=== PATIENT | male | born 2000 | race Two or more races ===

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

== ENCOUNTER 2020-09-08 01:27 | Emergency (ER) | payer MEDICAID ==
[~2020-09-08] VITALS: Ht 188 cm; Wt 68.0 kg
[~2020-09-08 01:27] MED LIST changes: +GUAIFENESI100 MG/5 M ORAL; +VENTOLIN HFA18 GM INH; +ZITHROMAX250 MG ORAL
[2020-09-08 01:40] VITALS: BP 118/72
[2020-09-08] MEDS ORDERED: Omnipaque-300 100ml vial INJ PRN (01:45)
[2020-09-08] MEDS ORDERED: Morphine Sulfate 4mg/ml Inj (IV USE ONLY) IVP ONE ×2 (01:45→02:30)
--- NOTE | 2020-09-08 01:45 | Emergency Room Report ---
History of Present Illness General Chief Complaint: Abdominal Pain Source: Patient Present Illness HPI This is a 20-year-old male with no past medical history presents with complaint of abdominal pain. Onset about 7 hours ago. He was skateboarding and when he tried to jump over a bench, the board flipped up and hit him in the abdomen. He also said he try to twist his way out of the board. Initially has some soreness but now with increasing pain. Worse with movement. Worse with palpation. Pain is 10 out of 10. No nausea no vomiting. No fever chills. No dysuria frequency. Allergies: Coded Allergies: No Known Allergies (Unverified , 08/22/12) COVID-19 Screening Contact w/high risk pt: No Recent Travel to affected area: No Experienced COVID-19 symptoms?: No COVID-19 Testing performed [employer] OFFICER: No Patient History Past Medical History: see triage record, old chart reviewed Past Surgical History: none Pertinent Family History: none Social History: Denies: smoking Immunizations: UTD Reviewed Nursing Documentation: PMH: Agreed; PSxH: Agreed Nursing Documentation-PMH Past Medical History: No Stated History Review of Systems Eye: Denies: eye pain, blurred vision ENT: Denies: ear pain, nose congestion, throat swelling Respiratory: Denies: cough, shortness of breath Cardiovascular: Denies: chest pain, palpitations Gastrointestinal: Reports: abdominal pain; Denies: diarrhea, nausea, vomiting Musculoskeletal: Denies: back pain, joint pain Skin: Denies: rash Neurological: Denies: headache, numbness Endocrine: Denies: increased thirst, increased urine Hematologic/Lymphatic: Denies: easy bruising All Other Systems: negative except mentioned in HPI Physical Exam Vital Signs Date Time Temp Pulse Resp B/P (MAP) Pulse Ox O2 Delivery O2 Flow Rate FiO2 09/08/20 01:32 98.4 55 18 118/72 (87) 99 Room Air Vitals normal Sp02 EP Interpretation: reviewed, normal General Appearance: well appearing, no apparent distress, alert Head: normocephalic, atraumatic Eyes: bilateral eye PERRL, bilateral eye EOMI ENT: hearing grossly normal, normal pharynx Neck: full range of motion, supple, no meningismus Respiratory: chest non-tender, lungs clear, normal breath sounds Cardiovascular #1: regular rate, rhythm, no murmur Gastrointestinal: normal bowel sounds, no mass, no organomegaly, no bruit, non- distended, tenderness - Tenderness just superior to the umbilicus. Musculoskeletal: back normal, normal range of motion, gait/station normal Psychiatric: mood/affect normal Medical Decision Making Diagnostic Impression: Primary Impression: Generalized weakness ER Course Patient presents with generalized weakness. No evidence of any infection. No anemia. Clay better now. Will discharge home. Last Vital Signs Date Time Temp Pulse Resp B/P (MAP) Pulse Ox O2 Delivery O2 Flow Rate FiO2 09/08/20 01:32 98.4 55 18 118/72 (87) 99 Room Air Status: improved Disposition: HOME, SELF-CARE Condition: Stable Additional Instructions: Follow-up with your doctor in 7 days. Return if symptoms worsen. Primo Montes De Oca MD Sep 08, 2020 01:45
[2020-09-08 02:07] LABS: BASOPHILS % (AUTO) 0.8 % (0.0-2.0); EOSINOPHILS % (AUTO) 1.3 % (0.0-3.0); HEMOGLOBIN 13.8 G/DL (14.2-18.0); LYMPHOCYTES % (AUTO) 30.6 % (20.0-45.0); MEAN CORPUSCULAR VOLUME 85 FL (80-99); NEUTROPHILS % (AUTO) 59.2 % (45.0-75.0); PLATELET COUNT 228 K/UL (150-450); RED CELL DISTRIBUTION WIDTH 13.9 % (11.6-14.8); WHITE BLOOD COUNT 8.8 K/UL (4.8-10.8)
[2020-09-08 02:18] LABS: ANION GAP 5 mmol/L (5-15); BLOOD UREA NITROGEN 11 mg/dL (7-18); CARBON DIOXIDE 29 MMOL/L (21-32); CHLORIDE 106 MMOL/L (98-107); CREATININE 0.6 MG/DL (0.55-1.30); POTASSIUM 3.4 MMOL/L (3.5-5.1); SODIUM 140 MMOL/L (136-145)
[2020-09-08 02:23] LABS: ALANINE AMINOTRANSFERASE 27 U/L (12-78); ALBUMIN 3.9 G/DL (3.4-5.0); ALBUMIN/GLOBULIN RATIO 1.3 (1.0-2.7); ALKALINE PHOSPHATASE 111 U/L (46-116); ASPARTATE AMINO TRANSFERASE 16 U/L (15-37); BILIRUBIN,TOTAL 0.4 MG/DL (0.2-1.0); CALCIUM 8.4 MG/DL (8.5-10.1)
[2020-09-08] MEDS ORDERED: Morphine Sulfate 4mg/ml Inj (IV USE ONLY) ONE (02:29)
--- NOTE | 2020-09-08 03:22 | Diagnostic Imaging Report ---
EXAM: CT Abdomen and Pelvis With Intravenous Contrast CLINICAL HISTORY: ABD PAIN TECHNIQUE: Axial computed tomography images of the abdomen and pelvis with intravenous contrast. CTDI is 4.2 mGy and DLP is 233.9 mGy-cm. One or more of the following dose reduction techniques were used: automated exposure control, adjustment of the mA and/or kV according to patient size, use of iterative reconstruction technique. COMPARISON: No relevant prior studies available. FINDINGS: Lung bases: Tiny nodule in the periphery of the right lower lobe (image 12 series 4). Follow up based on risk factors and Fleischner's criteria. This measures approximately 5 mm. Additional tiny nodules are seen (image 7) and right lower lobe. Mediastinum: Small hiatal hernia. ABDOMEN: Liver: Diffuse periportal edema, nonspecific. Prominent right hepatic lobe. Gallbladder and bile ducts: Unremarkable. No calcified stones. No ductal dilation. Pancreas: Unremarkable. No mass. No ductal dilation. Spleen: Unremarkable. No splenomegaly. Adrenals: Unremarkable. No mass. Kidneys and ureters: Slight heterogeneity of the kidneys, likely timing of the contrast bolus. No evidence for obstructive uropathy. Stomach and bowel: Nonspecific bowel gas pattern with mild retained stool. No focal small bowel dilatation. No mucosal thickening. PELVIS: Appendix: Appendix not well-visualized. Bladder: Unremarkable CT appearance of the bladder. Reproductive: Unremarkable as visualized. ABDOMEN and PELVIS: Intraperitoneal space: No obvious free fluid. No free air. Bones/joints: No acute fracture. No dislocation. Soft tissues: Paucity of fat and oral contrast limit evaluation. Vasculature: Unremarkable. No abdominal aortic aneurysm. Lymph nodes: Unremarkable. No enlarged lymph nodes. IMPRESSION: 1. Diffuse periportal edema, nonspecific. 2. Limited study due to little or no intra-abdominal fat and absent oral contrast. 3. Nonspecific bowel gas pattern. Appendix not visualized. As indicated, consider repeat imaging after oral and IV contrast as indicated. 4. Tiny nodules in the visualized lower lung, nonspecific. Eventual follow-up chest CT to assess for any change and evaluate remainder of the chest as indicated
[2020-09-08] MEDS ORDERED: HYDROCODON-ACE1 EA15 ORAL (03:49)
--- NOTE | 2020-09-08 03:49 | Emergency Room Report ---
Physical Exam Vital Signs Date Time Temp Pulse Resp B/P (MAP) Pulse Ox O2 Delivery O2 Flow Rate FiO2 09/08/20 01:32 98.4 55 18 118/72 (87) 99 Room Air Medical Decision Making Diagnostic Impression: Primary Impression: Blunt abdominal trauma Qualified Codes: S39.91XA - Unspecified injury of abdomen, initial encounter Additional Impression: Contusion of liver, initial encounter ER Course This patient presents with abdominal injury from a skateboard. CT scan showed diffuse periportal edema. There is no liver laceration. Hemoglobin stable. Will discharge home. CT/MRI/US Diagnostic Results CT/MRI/US Diagnostic Results : Imaging Test Ordered: CT abdomen pelvis Impression Allergies. Diffuse periportal edema, none [place]. Nonspecific bowel gas pattern. Last Vital Signs Date Time Temp Pulse Resp B/P (MAP) Pulse Ox O2 Delivery O2 Flow Rate FiO2 09/08/20 02:21 98.4 09/08/20 01:40 56 18 118/72 99 Room Air Status: improved Disposition: HOME, SELF-CARE Condition: Stable Scripts Hydrocodone/Acetaminophen 5-325* (HYDROCODONE/ACETAMINOPHEN 5-325*) 1 Each Tablet 1 TAB ORAL Q6H PRN for For Pain, #20 TAB 0 Refills Prov: Primo Montes De Oca MD 09/08/20 Referrals: NON PHYSICIAN (PCP) Additional Instructions: Follow-up with your doctor in 7 days. Return if symptoms worsen. Primo Montes De Oca MD Sep 08, 2020 03:49
[2020-09-08 03:59] VITALS: BP 128/76
== END 2020-09-08 03:59 | disposition home or self-care (01) ==
LOC: EMR 01:51
DX: S39.91XA Unspecified injury of abdomen, initial encounter (principal); S36.112A Contusion of liver, initial encounter; R53.1 Weakness; R10.9 Unspecified abdominal pain; W22.8XXA Striking against or struck by other objects, initial encounter; Y93.51 Activity, roller skating (inline) and skateboarding; Y92.9 Unspecified place or not applicable
CPT/HCPCS: 36415; 74177; 80053; 83690; 85025; 96361; 96374; 96375; J2270; J2405; J7030; Q9965; Z7502; 99284